=== PATIENT | male | born 1960 | race Caucasian/White ===

== ENCOUNTER 2019-06-04 05:15 | Inpatient (IN) ==
--- NOTE | 2019-05-09 10:28 | PAT Medication Instructions ---
Medication Instructions Date of Service May 09, 2019 Home Medications Medication Instructions Recorded oxycodone-acetaminophen [Percocet] 1 tab PO Q6H PRN #15 tab 02/01/19 tamsulosin 0.4 mg PO DAILY #10 cap 02/01/19 Januvia 100 mg PO QPM amlodipine 10 mg PO QAM aspirin 81 mg PO QPM doxazosin 4 mg PO QPM glimepiride 1 mg PO QAM metformin 1,000 mg PO BID olmesartan-hydrochlorothiazide 1 tab PO QAM omeprazole 20 mg PO QAM oxycodone-acetaminophen [Percocet] 1 tab PO Q6H PRN tamsulosin 0.4 mg PO DAILY ASK your prescriber and surgeon aspirin 81 mg PO QPM DO NOT take the morning of surgery glimepiride 1 mg PO QAM metformin 1,000 mg PO BID olmesartan-hydrochlorothiazide 1 tab PO QAM Take morning of surgery With a small sip of water, OTHERWISE NOTHING TO EAT OR DRINK AFTER MIDNIGHT: amlodipine 10 mg PO QAM omeprazole 20 mg PO QAM oxycodone-acetaminophen [Percocet] 1 tab PO Q6H PRN (okay to take up to 4 hours prior to surgery if needed) tamsulosin 0.4 mg PO DAILY Take evening before surgery Januvia 100 mg PO QPM doxazosin 4 mg PO QPM metformin 1,000 mg PO BID oxycodone-acetaminophen [Percocet] 1 tab PO Q6H PRN (if needed) Other Notes If you have any questions please call us at [phone] or [phone] or [phone] or [phone]
--- NOTE | 2019-05-09 14:12 | Anesthesiology Consultation ---
Date of Service May 09, 2019 Assessment & Plan (1) Encounter for pre-operative examination: CHECK BSG AM DOS Lithotripsy 02/01/19 = LMA # 5, atraumatic, smooth IV induction. Chart Review Chart Review: Acceptable Risk for Surgery and Patient seen in Pre Admission Testing Teaching & Discussion Instructed NPO after midnight before surgery, except medications with 15 cc of water. Medication instructions provided according to the PAT guidelines. History Surgery Operation Date: 06/04/19 07:30 Proposed Procedures p Right Robotic Laparoscopic Assisted Partial Nephrectomy - Amari Huston MD Height/Weight Height: 5 ft 10 in Weight: 139.9 kg Allergies Allergy/AdvReac Type Severity Reaction Status Date / Time No Known Allergies Allergy Verified 05/02/19 15:11 Medications Home Medications Medication Instructions Recorded Confirmed Last Taken Januvia 100 mg PO QPM 01/17/19 05/02/19 01/31/19 19:00 amlodipine 10 mg PO QAM 01/17/19 05/02/19 02/01/19 04:30 aspirin 81 mg PO QPM 01/17/19 05/02/19 01/24/19 18:00 doxazosin 4 mg PO QPM 01/17/19 05/02/19 01/31/19 19:00 glimepiride 1 mg PO QAM 01/17/19 05/02/19 01/31/19 08:00 metformin 1,000 mg PO BID 01/17/19 05/02/19 01/31/19 19:00 olmesartan-hydrochlorothiazide 1 tab PO QAM 01/17/19 05/02/19 01/31/19 08:00 omeprazole 20 mg PO QAM 01/17/19 05/02/19 02/01/19 04:30 oxycodone-acetaminophen [Percocet] 1 tab PO Q6H PRN #15 tab 02/01/19 05/02/19 Unknown tamsulosin 0.4 mg PO DAILY #10 cap 02/01/19 05/02/19 Unknown Past Medical History Medical History Abnormal EKG 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 Cardio workup showed benign echo. Diabetes mellitus, type 2 NIDDM GERD (gastroesophageal reflux disease) History of kidney stones Hypertension Renal mass Sleep apnea CPAP Exercise / Class Metabolic Activity II 4-5 Yardwork/Stairs/Walk up hill (Denies CP or SOB with 1 FOS, hung true lights this AM, up and down ladder without issue) Past Family History Family History Father Family history of diabetes mellitus Grandmother (Maternal) Family hx of colon cancer Past Surgical History Surgical History History of colonoscopy History of lithotripsy [place] [facility] [place] [facility] [place] of tonsillectomy History of wisdom tooth extraction Past Anesthesia History No Hx of Anesthesia Complications and No Family Hx of Anesthesia Complications History of PONV No Hx of PONV and Hx of Motion Sickness Social History Smoking Status: Never smoker Do You Dip or Chew Tobacco: No Hx Alcohol Use: Yes alcohol intake frequency: holidays/special occasions only Hx Substance Use: No substance use type: does not use Review of Systems Pt denies any recent chest pain, shortness of breath, palpitations, cough, fever or URI. Physical Exam Vital Signs BP: 133/81 P: 82bpm SPO2: 95% RA T: 98.1 F R: 18 Constitutional + morbidly obese ENMT Mouth: + dental restorations (one crown upper L, several broken teeth bonded); no chipped teeth and no loose teeth Thyromental Distance: > or= 3.5 Finger Breadths (3.5) Mallampati Class: III Neck + short neck, + thick neck and + facial hair (trimmed goatee); neck extension not limited Respiratory normal respiratory effort Auscultation: lungs clear to auscultation bilaterally Cardiovascular Rate/Rhythm: regular rate and regular rhythm Heart Sounds: no murmur Vessels: no carotid bruit Extremities: no edema Testing Laboratory Results 05/09/19 14:22 05/09/19 14:22 Hemoglobin A1c 6.9 % (4.5-5.6) H 05/09/19 14:22 Urine Color Yellow 05/09/19 14:22 Urine Appearance Clear (Clear) 05/09/19 14:22 Urine pH 5.0 (4.5-7.5) 05/09/19 14:22 Ur Specific [place] 1.024 (1.000-1.030) 05/09/19 14:22 Urine Protein Negative (Negative) 05/09/19 14:22 Urine Glucose (UA) Negative (Negative) 05/09/19 14:22 Urine Ketones Negative (Negative) 05/09/19 14:22 Urine Nitrite Negative (Negative) 05/09/19 14:22 Ur Leukocyte Esterase Negative (Negative) 05/09/19 14:22 Blood Type O Positive 05/09/19 14:22 Antibody Screen NEGATIVE 05/09/19 14:22 Electrocardiogram Date: 01/19/19 Sinus rhythm at 80 bpm with occasional premature ventricular complexes. Inferior infarct, age undetermined. Chest X-Ray Date: 05/09/19 Findings: + NAD Echocardiogram Date: 01/30/19 EF: 60-65% Left ventricular size wall motion and systolic function are normal. There is mild concentric LVH. No significant valvular pathology.
--- NOTE | 2019-05-09 14:37 | XRay Report ---
TWO VIEW CHEST CLINICAL HISTORY: Preoperative examination. FINDINGS: PA and lateral chest radiographs are obtained. No prior studies are available for compariso n at the time of dictation. The heart is top normal for projection noting atherosclerotic calcifica tion of the thoracic aorta. There is mild elevation of the right hemidiaphragm and bibasilar atelecta sis. The lungs and pleural spaces are otherwise clear. There is no pneumothorax. The bony thorax appe ars intact. IMPRESSION: No active disease in the chest. Electronically signed by: Tim Minor M.D. 05/09/2019 2:35 PM
[2019-05-09 16:18] LABS: Basophils # (auto) 0.05 K/uL (0-0.2); Basophils % (auto) 0.7 %; Eosinophils # (auto) 0.12 K/uL (0-0.5); Eosinophils % (auto) 1.7 %; Hematocrit (blood only) 39.2 % (42-52); Hemoglobin 13.5 g/dL (14.0-18.0); Immature Granulocytes # (auto) 0.02 K/uL (0.00-0.02); Immature Granulocytes % (auto) 0.3 %; Lymphocytes # (auto) 1.45 K/uL (1.2-3.4); Mean Corpuscular Hemoglobin 30.5 pg (25-34); Mean Corpuscular Hgb Conc 34.4 g/dL (32-36); Mean Corpuscular Volume 88.7 fL (80-100); Mean Platelet Volume 9.7 fL (7.4-10.4); Monocytes # (auto) 0.64 K/uL (0.11-0.59); Monocytes % (auto) 8.8 %; Neutrophils # (auto) 4.97 K/uL (1.4-6.5); Neutrophils % (auto) 68.5 %; Platelet Count 279 K/uL (130-400); Red Blood Count 4.42 M/uL (4.7-6.1); White Blood Count 7.25 K/uL (4.8-10.8)
[2019-05-09 16:24] LABS: Est GFR (African American) 104.4; Potassium 3.8 mmol/L (3.5-5.1)
[2019-05-09 16:25] LABS: BUN Creatinine Ratio 25.8 (10-20); Calcium 9.8 mg/dl (8.5-10.1); Creatinine Clr Calc Pharmacy 120.5 ml/min; Est GFR (Non-African American) 90.1
[2019-05-09 16:31] LABS: Appearance Urine Clear (Clear); Bilirubin Urine Negative (Negative); Blood Urine Negative (Negative); Color Urine Yellow; Glucose Urine UA Negative (Negative); Ketones Urine Negative (Negative); Leukocyte Esterase Urine Negative (Negative); Nitrite Urine Negative (Negative); Protein Urine Negative (Negative); Specific Gravity Urine 1.024 (1.000-1.030); Urobilinogen Urine Negative (Negative)
[2019-05-10 06:09] LABS: Estimated Average Glucose 151 mg/dl; Hemoglobin A1C 6.9 % (4.5-5.6)
[2019-06-04] MEDS ORDERED: CEFAZOLIN 3000MG 65 ML IV SCH (06:00)
[2019-06-04] MEDS ORDERED: ACETAMINOPHEN 1,000 MG/100 ML VIAL IV SCH (06:00)
[2019-06-04] MEDS ORDERED: LR 15ML/HR IV SCH (06:00)
[2019-06-04] MEDS ORDERED: GELATIN SPONGE SZ 100 ONE (07:02)
[2019-06-04] MEDS ORDERED: MANNITOL 25% 12.5 GM/50 ML VIAL IV ONE (07:02)
[2019-06-04] MEDS ORDERED: BUPIVACAINE 0.5 % 5 MG/1 ML MPF 30ML VIAL ONE (07:02)
[2019-06-04] MEDS ORDERED: fentaNYL citrate 100 MCG/2 ML VIAL ONE ×3 (07:03→10:46)
[2019-06-04] MEDS ORDERED: MIDAZOLAM HCL 1 MG/ML 2ML VIAL ONE (07:03)
--- NOTE | 2019-06-04 07:04 | History & Physical Bridge Note ---
Date of Service June 04, 2019 History & Physical Bridge Note I have examined the patient, reviewed the History & Physical and in the interval since the performance of the History & Physical I have noted the following changes of clinical significance: no changes noted
[2019-06-04] MEDS ORDERED: ePHEDrine sulfate 50 MG/ML AMP IV PRN (07:18)
[2019-06-04] MEDS ORDERED: HYDROmorphone INJ 2 MG/ML SYR/VIAL IV PRN (07:18)
[2019-06-04] MEDS ORDERED: ATROPINE SULFATE 0.1 MG/ML 10ML SYR IV PRN (07:18)
[2019-06-04] MEDS ORDERED: fentaNYL citrate 100 MCG/2 ML VIAL IV PRN (07:18)
[2019-06-04] MEDS ORDERED: HYDROmorphone INJ 2 MG/ML SYR/VIAL ONE (08:28)
[2019-06-04] MEDS ORDERED: DEXAMETHASONE SOD INJ 4 MG/ML VIAL ONE (08:33)
[2019-06-04] MEDS ORDERED: PROPOFOL IV EMULSION 10 MG/ML 20 ML VIAL IV ONE (08:33)
[2019-06-04] MEDS ORDERED: NEOSTIGMINE METHYLSULFATE 5 MG/5 ML SYR ONE (08:33)
[2019-06-04] MEDS ORDERED: GLYCOPYRROLATE 0.2 MG/ML VIAL ONE (08:33)
[2019-06-04] MEDS ORDERED: PHENYLEPHRINE 100MCG/ML 5ML SYR ONE (08:33)
[2019-06-04] MEDS ORDERED: LIDOCAINE HCL 2% 2 ML VIAL/AMP(20MG/ML) INFIL ONE (08:33)
[2019-06-04] MEDS ORDERED: ONDANSETRON INJ 2 MG/ML 2 ML VIAL ONE ×2 (08:33→12:55)
[2019-06-04] MEDS ORDERED: ePHEDrine sulfate 50 MG/ML SYR ONE (08:33)
[2019-06-04] MEDS ORDERED: ROCURONIUM BROMIDE 10 MG/ML 5 ML VIAL ONE ×3 (08:33→11:11)
[2019-06-04] MEDS ORDERED: LARYING-O-JET KIT (LTA) ONE (08:33)
[2019-06-04] MEDS ORDERED: FLOSEAL HEMOSTATIC MATRIX 10ML TOP ONE (09:34)
[2019-06-04] MEDS ORDERED: TISSEEL FIBRIN SEALANT 10ML TOP ONE (09:34)
[2019-06-04] MEDS ORDERED: BACITRACIN INJ 50,000 UNIT VIAL ONE (10:42)
--- NOTE | 2019-06-04 12:40 | Operative Report ---
PG Post Operative Report Pre & Post Diagnosis Operation Date: 06/04/19 07:30 Pre-Op Diagnosis: Right Renal Mass Post-Op Diagnosis: Right Renal Mass I identified the patient and participated in the time-out.: Yes Procedure Operation Date: 06/04/19 07:30 Actual Procedures p Right Robotic Laparoscopic Assisted Partial Nephrectomy(Right) - Amari Huston MD Surgeon Amari Huston MD Transitional Care Liaison KESHA Saucedo, KESHA De Paz Estimated Blood Loss 100 Findings Consistent with Post-Op Diagnosis Specimens R Bosjasmink 3 renal cyst Description of Procedure See above I attest to the content of the Intraoperative Record and any orders documented therein. Any exceptions are noted below.
[2019-06-04] MEDS ORDERED: ONDANSETRON INJ 2 MG/ML 2 ML VIAL IV PRN ×2 (12:57→14:41)
[2019-06-04 13:05] LABS: Basophils # (auto) 0.01 K/uL (0-0.2); Basophils % (auto) 0.1 %; Eosinophils # (auto) 0.01 K/uL (0-0.5); Eosinophils % (auto) 0.1 %; Hematocrit (blood only) 39.3 % (42-52); Hemoglobin 13.1 g/dL (14.0-18.0); Immature Granulocytes # (auto) 0.03 K/uL (0.00-0.02); Immature Granulocytes % (auto) 0.3 %; Lymphocytes # (auto) 0.75 K/uL (1.2-3.4); Lymphocytes % (auto) 6.4 %; Mean Corpuscular Hemoglobin 30.3 pg (25-34); Monocytes # (auto) 0.33 K/uL (0.11-0.59); Monocytes % (auto) 2.8 %; Neutrophils # (auto) 10.55 K/uL (1.4-6.5); Neutrophils % (auto) 90.3 %; Platelet Count 250 K/uL (130-400); RDW Coefficient of Variation 12.7 % (11.5-14.5); RDW Standard Deviation 42.3 fL (36.4-46.3); Red Blood Count 4.32 M/uL (4.7-6.1); White Blood Count 11.68 K/uL (4.8-10.8)
[2019-06-04 13:08] LABS: Mean Corpuscular Hgb Conc 33.3 g/dL (32-36)
[2019-06-04 13:20] LABS: BUN Creatinine Ratio 14.4 (10-20); Calcium 8.7 mg/dl (8.5-10.1); Creatinine Clr Calc Pharmacy 84.8 ml/min; Est GFR (African American) 68.1; Est GFR (Non-African American) 58.8; Potassium 4.6 mmol/L (3.5-5.1)
[2019-06-04] MEDS ORDERED: PROMETHAZINE HCL 6.25 MG in SODIUM CHLORIDE 0.9% 50 ML IV STA (13:29)
--- NOTE | 2019-06-04 13:55 | Anesthesiology Progress Note ---
Date of Service June 04, 2019 Anesthesia Post Procedure Vital Signs Vital Signs: Temp Pulse Pulse Resp BP BP Pulse Ox 06/04/19 13:40 95 H 18 135/69 94 06/04/19 13:30 102 H 18 140/78 96 06/04/19 13:20 96 H 20 132/82 95 06/04/19 13:10 80 17 133/86 97 06/04/19 13:00 88 17 133/71 96 06/04/19 12:50 84 12 121/69 96 06/04/19 12:41 36.6 C 88 16 136/64 97 06/04/19 05:46 36.7 C 87 16 161/87 H 93 Pain Intensity Right Abdomen: Pain Intensity: 0 Transfer of Care Handoff Completed per policy Notes Mental Status: alert / awake / arousable and participated in evaluation Patient Amnestic to Procedure: Yes Nausea / Vomiting: adequately controlled Pain: adequately controlled Airway Patency, RR, SpO2: stable & adequate BP & HR: stable & adequate Hydration State: stable & adequate Anesthetic Complications: no major complications apparent and Pt Satisfied with anesthetic care
[2019-06-04] MEDS ORDERED: HYDROmorphone INJ 1 MG/ML SYRINGE IV PRN (14:41)
[2019-06-04] MEDS ORDERED: OXYCODONE HCL IR 5 MG TAB (IMMEDIATE RELEASE) PO PRN (14:41)
[2019-06-04] MEDS ORDERED: PHARMACY GLYCEMIC MGMT CONSULT PRN (15:11)
--- NOTE | 2019-06-04 15:11 | Pharmacy Report ---
Glycemic Control Consultation - Date of Service June 04, 2019 - Scope Scope: Glycemic Pharmacist consulted by Marjan Singh on 06/04 for glycemic control and to write orders per [facility] inpatient glycemic control protocol - Objective Weight: 140.354 kg Accuchecks BSG (last 24hrs): 06/04/19 06/04/19 06/04/19 05:44 12:51 12:51 Glucose 254 H POC Glucose 182 H 240 H Laboratory Data (last 24hrs): 06/04/19 12:51 Potassium 4.6 Carbon Dioxide 23 Anion Gap 9.0 Creatinine 1.31 Est Cr Clr Drug Dosing 84.8 HbA1c: Hemoglobin A1c 6.9 % (4.5-5.6) H 05/09/19 14:22 - Recent Pertinent Medications Outpatient Anti-diabetic Regimen: * glimepiride 1 mg qam, metformin 1000 mg bid, januvia 100 qpm * A1c = 6.9 % 05/09/19 Risk Factors for Insulin Resistance: * Steroids: Dxm 4 iv x 1 in OR * Recent Surgery: POD 0 * Diet: clears - Assessment & Plan Assessment & Plan: ASSESSMENT: * 58 year old male now s/p partial nephrectomy. PMHx significant for type 2 diabetes, htn, GERD, renal mass. * Postop BSGs elevated at 240 mg/dL - likely related to steroids given in OR * Pharmacy consulted for glycemic management. Patient only on oral agents at home. Will utilize basal/bolus insulin postop PLAN FOR INPATIENT GLYCEMIC CONTROL: * Pt is maintained on oral antidiabetic agents as an outpatient * Oral agents are not recommended for inpatient use d/t drug interactions, changing PO intake, and difficulty titrating for acute hyper/hypoglycemia. ADA recommends re-initiating outpatient oral agents 1-2 days prior to discharge if/when appropriate if they were held on admission. * Will hold oral agents for admission and utilize SQ basal bolus insulin regimen which is the recommended regimen for inpatient glycemic control. * Will initiate weight based insulin dosing for insulin willy patient and titrate based on BSG trends. * Basal insulin * NPH 25 units x 1 now (~0.25 units/kg adj bw) - to help cover steroids * Bolus insulin * NovoLog per scale ACHS or Q6hrs while NPO * Goal Range: Low 110 mg/dL - High 140 mg/dL * Correction Factor: 20 mg/dL/unit * Nutritional / Prandial insulin per carb ratio of 1 unit per 7 grams CHO consumed * Please note that the plan above was derived based on current level of insulin resistance and hospital stress. These recommendations are appropriate for inpatient admission only. Plan of care upon discharge will need to be reassessed to avoid potential outpatient hypo/hyperglycemia. Thank you.
[2019-06-04] MEDS ORDERED: NovoLIN-N (NPH) PER UNIT CHARGE SQ ONE (15:15)
[2019-06-04] MEDS ORDERED: GLUCOSE 10 TABS/TUBE PO PRN (15:15)
[2019-06-04] MEDS ORDERED: GLUCAGON FOR INJ 1 MG VIAL IM PRN (15:15)
[2019-06-04] MEDS ORDERED: GLUCOSE 40% GEL 15 GM TUBE PO PRN (15:15)
[2019-06-04] MEDS ORDERED: CARBOHYDRATES FOR HYPOGLYCEMIA PO PRN (15:15)
[2019-06-04] MEDS ORDERED: DEXTROSE 50% 50 ML SYRINGE IV PRN (15:15)
[2019-06-04] MEDS: LACTATED RINGER'S 1,000 ML IV SCH ×2 (15:39→22:44)
[2019-06-04] MEDS: ACETAMINOPHEN 1,000 MG/100 ML VIAL IV SCH ×2 (15:49→22:44)
[2019-06-04] MEDS: PANTOprazole 40 MG TAB PO SCH (16:05)
[2019-06-04] MEDS: CEFAZOLIN 2000MG 2,000 MG/15 ML SYR IV SCH (16:37)
[2019-06-04] MEDS: OXYCODONE HCL IR 5 MG TAB (IMMEDIATE RELEASE) PO PRN (17:38)
[2019-06-04] MEDS: INSULIN ASPART 100 UNITS/ML 3 ML PEN SC SCH ×2 (18:07→21:20)
[2019-06-04] MEDS ORDERED: METOCLOPRAMIDE HCL INJ 5 MG/ML 2 ML VIAL IV PRN (18:25)
[2019-06-04] MEDS: HYDROmorphone INJ 1 MG/ML SYRINGE IV PRN (19:46)
[2019-06-04] MEDS: DOXAZosin MESYLATE 4 MG TAB PO SCH (21:19)
[2019-06-05] MEDS: OXYCODONE HCL IR 5 MG TAB (IMMEDIATE RELEASE) PO PRN ×5 (00:08→22:25)
[2019-06-05] MEDS: CEFAZOLIN 2000MG 2,000 MG/15 ML SYR IV SCH (00:09)
[2019-06-05] MEDS: INSULIN ASPART 100 UNITS/ML 3 ML PEN SC SCH ×6 (00:13→21:10)
[2019-06-05] MEDS: LACTATED RINGER'S 1,000 ML IV SCH ×3 (06:34→22:25)
[2019-06-05] MEDS: ACETAMINOPHEN 1,000 MG/100 ML VIAL IV SCH (06:34)
[2019-06-05 07:47] LABS: Basophils # (auto) 0.01 K/uL (0-0.2); Basophils % (auto) 0.1 %; Eosinophils # (auto) 0.01 K/uL (0-0.5); Eosinophils % (auto) 0.1 %; Hematocrit (blood only) 36.4 % (42-52); Hemoglobin 12.1 g/dL (14.0-18.0); Immature Granulocytes # (auto) 0.02 K/uL (0.00-0.02); Immature Granulocytes % (auto) 0.2 %; Lymphocytes # (auto) 0.91 K/uL (1.2-3.4); Lymphocytes % (auto) 10.2 %; Mean Corpuscular Hemoglobin 29.7 pg (25-34); Mean Corpuscular Hgb Conc 33.2 g/dL (32-36); Mean Corpuscular Volume 89.2 fL (80-100); Mean Platelet Volume 9.4 fL (7.4-10.4); Monocytes # (auto) 0.89 K/uL (0.11-0.59); Neutrophils % (auto) 79.4 %; Platelet Count 217 K/uL (130-400); RDW Coefficient of Variation 13.1 % (11.5-14.5); RDW Standard Deviation 42.8 fL (36.4-46.3); Red Blood Count 4.08 M/uL (4.7-6.1); White Blood Count 8.94 K/uL (4.8-10.8)
--- NOTE | 2019-06-05 07:53 | Urology Progress Note ---
Date of Service June 05, 2019 Assessment & Plan (1) Right renal mass: A/P 58 yo male POD#1 s/p R robotic partial nephrectomy for Bosniak 3 renal cyst. Appropriate postop course so far. Will keep IVF for now seen emesis last night. Trial of full liquids this AM, consider advancing diet this PM if tolerating. Seen pain med requirement I anticipate DC home tomorrow. TOV today, ambulate in halls. Importance of activity reviewed. Monitor ROME OP after removal of williamson, acceptable for now. Subjective 58 yo male POD#1 s/p R robotic partial nephrectomy. OVN noted to have nausea and emesis, improved, now with appetite. Ambulatory in hallways, reports parenteral pain meds needed for pain control. Intraop findings reviewed, labs noted - minimal bump in Cr, otherwise stable. No other c/o. Review of Systems Constitutional: no fever and no chills Eyes: no diplopia Ear, Nose, Mouth, Throat: no ear trauma Respiratory: no hemoptysis Cardiovascular: no chest pain Gastrointestinal: + abdominal pain (appropriate postop), + nausea and + vomiting (improved) Musculoskeletal: + back pain Integumentary: no acne and no boil Neurologic: no paralysis Psychiatric: no hopelessness Endocrine: + fatigue Allergy / Immunological: no tongue swelling Physical Exam Constitutional: + morbidly obese; no acute distress Eyes: eyes not dysmorphic ENMT: Ears: no external ear abnormality Neck: trachea midline; no anterior neck swelling Respiratory: no respiratory distress and does not use accessory muscles Cardiovascular: Vessels: radial pulses present Gastrointestinal (Abdomen): Inspection/Auscultation: abdomen not distended Percussion/Palpation: abdomen soft; abdomen nontender inc c/d/i Musculoskeletal: Head/Neck/Chest: normocephalic and neck supple Skin: normal turgor Neurologic: awake; not obtunded Psychiatric: Orientation: oriented x 3 Lymphatic: no lymphadenopathy Results & Data Vital Signs (Past 12 Hours) Vital Signs Temp Pulse Resp BP Pulse Ox 06/05/19 04:27 37.1 C 85 16 127/70 90 06/04/19 23:29 37.0 C 84 16 121/72 90 06/04/19 21:17 83 124/72 Laboratory Results Laboratory Results - last 48 hr 06/04/19 06/04/19 06/04/19 05:44 12:51 12:51 WBC 11.68 H RBC 4.32 L Hgb 13.1 L Hct 39.3 L MCV 91.0 MCH 30.3 MCHC 33.3 RDW Std Deviation 42.3 RDW Coeff of Sheron 12.7 Plt Count 250 MPV 9.0 Immature Gran % (Auto) 0.3 Neut % (Auto) 90.3 Lymph % (Auto) 6.4 [place] % (Auto) 2.8 Eos % (Auto) 0.1 Baso % (Auto) 0.1 Immature Gran # (Auto) 0.03 H Neut # (Auto) 10.55 H Lymph # (Auto) 0.75 L [place] # (Auto) 0.33 Eos # (Auto) 0.01 Baso # (Auto) 0.01 Sodium 135 L Potassium 4.6 Chloride 103 Carbon Dioxide 23 Anion Gap 9.0 BUN 19 H Creatinine 1.31 Est Cr Clr Drug Dosing 84.8 Est GFR ( Amer) 68.1 Est GFR (Non-Af Amer) 58.8 BUN/Creatinine Ratio 14.4 Glucose 254 H POC Glucose 182 H Calcium 8.7 06/04/19 06/04/19 06/04/19 12:51 15:43 17:12 WBC RBC Hgb Hct MCV MCH MCHC RDW Std Deviation RDW Coeff of Sheron Plt Count MPV Immature Gran % (Auto) Neut % (Auto) Lymph % (Auto) [place] % (Auto) Eos % (Auto) Baso % (Auto) Immature Gran # (Auto) Neut # (Auto) Lymph # (Auto) [place] # (Auto) Eos # (Auto) Baso # (Auto) Sodium Potassium Chloride Carbon Dioxide Anion Gap BUN Creatinine Est Cr Clr Drug Dosing Est GFR ( Amer) Est GFR (Non-Af Amer) BUN/Creatinine Ratio Glucose POC Glucose 240 H 260 H 225 H Calcium 06/04/19 06/05/19 06/05/19 20:40 00:04 04:16 WBC RBC Hgb Hct MCV MCH MCHC RDW Std Deviation RDW Coeff of Sheron Plt Count MPV Immature Gran % (Auto) Neut % (Auto) Lymph % (Auto) [place] % (Auto) Eos % (Auto) Baso % (Auto) Immature Gran # (Auto) Neut # (Auto) Lymph # (Auto) [place] # (Auto) Eos # (Auto) Baso # (Auto) Sodium Potassium Chloride Carbon Dioxide Anion Gap BUN Creatinine Est Cr Clr Drug Dosing Est GFR ( Amer) Est GFR (Non-Af Amer) BUN/Creatinine Ratio Glucose POC Glucose 201 H 139 H 124 H Calcium 06/05/19 07:03 WBC 8.94 RBC 4.08 L Hgb 12.1 L Hct 36.4 L MCV 89.2 MCH 29.7 MCHC 33.2 RDW Std Deviation 42.8 RDW Coeff of Sheron 13.1 Plt Count 217 MPV 9.4 Immature Gran % (Auto) 0.2 Neut % (Auto) 79.4 Lymph % (Auto) 10.2 [place] % (Auto) 10.0 Eos % (Auto) 0.1 Baso % (Auto) 0.1 Immature Gran # (Auto) 0.02 Neut # (Auto) 7.10 H Lymph # (Auto) 0.91 L [place] # (Auto) 0.89 H Eos # (Auto) 0.01 Baso # (Auto) 0.01 Sodium Potassium Chloride Carbon Dioxide Anion Gap BUN Creatinine Est Cr Clr Drug Dosing Est GFR ( Amer) Est GFR (Non-Af Amer) BUN/Creatinine Ratio Glucose POC Glucose Calcium PG Care Time/CCT Total # of Minutes Spent Total Time Spent with Patient: Total time spent is greater than 50% in coordination of care (as documented) at patient's floor/unit and/or counseling patient:
[2019-06-05 08:20] LABS: BUN Creatinine Ratio 14.8 (10-20); Calcium 8.4 mg/dl (8.5-10.1); Creatinine Clr Calc Pharmacy 118.1 ml/min; Est GFR (African American) 101.7; Est GFR (Non-African American) 87.8; Potassium 3.5 mmol/L (3.5-5.1)
[2019-06-05] MEDS ORDERED: NovoLIN-N (NPH) PER UNIT CHARGE SQ STA (08:54)
[2019-06-05] MEDS: OLMESARTAN MEDOXOMIL 40 MG TAB PO SCH (08:57)
[2019-06-05] MEDS: hydroCHLOROthiazide 25 MG TAB PO SCH (08:57)
[2019-06-05] MEDS: HEPARIN SOD 5,000 UNIT/0.5 ML VIAL SQ SCH ×2 (08:57→21:11)
[2019-06-05] MEDS: AMLODIPINE BESYLATE 5 MG TAB PO SCH (08:57)
[2019-06-05] MEDS: PANTOprazole 40 MG TAB PO SCH (08:57)
[2019-06-05] MEDS: HYDROmorphone INJ 1 MG/ML SYRINGE IV PRN (09:20)
--- NOTE | 2019-06-05 13:15 | Pharmacy Report ---
Pharmacy Glycemic Short Note 2 - Date of Service June 05, 2019 - Glycemic Short BSG Results (Last 24 hours): 06/04/19 06/04/19 06/04/19 12:51 15:43 17:12 Glucose 254 H POC Glucose 260 H 225 H 06/04/19 06/05/19 06/05/19 20:40 00:04 04:16 Glucose POC Glucose 201 H 139 H 124 H 06/05/19 06/05/19 07:03 08:34 Glucose 142 H POC Glucose 136 H ASSESSMENT: * BSGs have been reasonable today. I provided NPH 17u X1 this AM due to him receiving IV DXM perioperatively yesterday. Hyperglycemic effects are likely to dissipate by this evening. He is ordered a full liquid diet. Minimal other RF to confer insulin resistance at this time. PLAN FOR INPATIENT GLYCEMIC CONTROL: * Hold outpatient oral diabetes medications * Basal insulin * NPH as above * Bolus insulin * NovoLog per scale ACHS or Q6hrs while NPO * Goal Range: Low 110 mg/dL - High 140 mg/dL * Correction Factor: 20 mg/dL/unit * Nutritional / Prandial insulin per carb ratio of 1 unit per 6 grams CHO consumed
[2019-06-05] MEDS ORDERED: ACETAMINOPHEN 500 MG TAB PO PRN (17:58)
[2019-06-05] MEDS: DOXAZosin MESYLATE 4 MG TAB PO SCH (21:11)
[2019-06-06] MEDS: LACTATED RINGER'S 1,000 ML IV SCH (06:26)
[2019-06-06 07:00] LABS: Basophils # (auto) 0.02 K/uL (0-0.2); Basophils % (auto) 0.3 %; Eosinophils # (auto) 0.08 K/uL (0-0.5); Hematocrit (blood only) 35.7 % (42-52); Hemoglobin 11.8 g/dL (14.0-18.0); Immature Granulocytes # (auto) 0.02 K/uL (0.00-0.02); Immature Granulocytes % (auto) 0.3 %; Lymphocytes # (auto) 1.09 K/uL (1.2-3.4); Lymphocytes % (auto) 14.1 %; Mean Corpuscular Hemoglobin 29.8 pg (25-34); Mean Corpuscular Hgb Conc 33.1 g/dL (32-36); Mean Corpuscular Volume 90.2 fL (80-100); Mean Platelet Volume 9.2 fL (7.4-10.4); Monocytes # (auto) 0.83 K/uL (0.11-0.59); Monocytes % (auto) 10.7 %; Neutrophils % (auto) 73.6 %; Platelet Count 203 K/uL (130-400); RDW Coefficient of Variation 13.1 % (11.5-14.5); RDW Standard Deviation 43.2 fL (36.4-46.3); Red Blood Count 3.96 M/uL (4.7-6.1); White Blood Count 7.74 K/uL (4.8-10.8)
[2019-06-06 07:32] LABS: BUN Creatinine Ratio 12.9 (10-20); Calcium 8.5 mg/dl (8.5-10.1); Creatinine Clr Calc Pharmacy 114.5 ml/min; Est GFR (African American) 97.9; Est GFR (Non-African American) 84.5; Potassium 3.4 mmol/L (3.5-5.1)
[2019-06-06] MEDS: OXYCODONE HCL IR 5 MG TAB (IMMEDIATE RELEASE) PO PRN ×2 (07:40→12:34)
[2019-06-06] MEDS: hydroCHLOROthiazide 25 MG TAB PO SCH (07:41)
[2019-06-06] MEDS: OLMESARTAN MEDOXOMIL 40 MG TAB PO SCH (07:41)
[2019-06-06] MEDS: AMLODIPINE BESYLATE 5 MG TAB PO SCH (07:41)
[2019-06-06] MEDS: PANTOprazole 40 MG TAB PO SCH (07:41)
[2019-06-06] MEDS: HEPARIN SOD 5,000 UNIT/0.5 ML VIAL SQ SCH (08:42)
[2019-06-06] MEDS: INSULIN ASPART 100 UNITS/ML 3 ML PEN SC SCH ×2 (08:42→12:38)
[2019-06-06] MEDS ORDERED: NovoLIN-N (NPH) PER UNIT CHARGE SQ SCH (09:00)
[2019-06-06] MEDS ORDERED: METFORMIN HCL 500 MG TAB PO SCH (09:00)
--- NOTE | 2019-06-06 10:32 | Pharmacy Report ---
Pharmacy Glycemic Short Note 2 - Date of Service June 06, 2019 - Glycemic Short BSG Results (Last 24 hours): 06/05/19 06/05/19 06/05/19 12:24 17:19 20:39 Glucose POC Glucose 176 H 151 H 169 H 06/06/19 06/06/19 06:21 08:20 Glucose 160 H POC Glucose 162 H ASSESSMENT: * Patient received total 52 units of insulin yesterday of which 17 units were basal NPH and the rest bolus Novolog. * Fasting BSG only slightly above goal. Post prandial BSGs yesterday were also slightly above goal. * Spoke to nurse this AM. Patient has been tolerating a full liquid diet without nausea/vomiting. He would like to advance to regular diet per nurse. Also plan for discharge today. * Dosed NPH this AM at 10 units x1 which is based on weight and stress factor of 1. Resumed home dose of Metformin this AM as well. * Novolog carb ratio was removed starting at lunch since Metformin should be working by then. This is only pertinent if patient is still here at lunch time. PLAN FOR INPATIENT GLYCEMIC CONTROL: * Metformin 1000 mg PO BID with breakfast today. * Basal insulin * NPH as above * Bolus insulin: removed Carb Ratio * NovoLog per scale ACHS or Q6hrs while NPO * Goal Range: Low 110 mg/dL - High 140 mg/dL * Correction Factor: 20 mg/dL/unit * Nutritional / Prandial insulin per carb ratio of 1 unit per __ grams CHO consumed Discharge Recommendations: * HbA1c = 6.9% on 05/09/19. * Recommend resuming home anti-diabetic meds: Glimepiride, Metformin and Januvia upon discharge provided patient is not reporting hypoglycemia.
--- NOTE | 2019-06-06 13:19 | Urology Progress Note ---
Date of Service June 06, 2019 Assessment & Plan (1) Right renal mass: A/P 58 yo male POD#2 s/p R robotic partial nephrectomy for Bosniak 3 renal cyst. Pt feeling well, ready for discharge. Post op course reviewed. ROME discontinued. All questions answered, post op appointments arranged. . Subjective 58 yo male POD#2 s/p R robotic partial nephrectomy. nausea improved since yesterday, no further vomiting. ambulating in halls Voiding adequate amounts spontaneosly pain presently controlled Review of Systems Review of Systems: All systems reviewed & are unremarkable except as noted in HPI & below Physical Exam Physical Exam: A&Ox3 resp rate regular abd obese, nontender incisions c/d/i ROME site with scant drainage Results & Data Vital Signs (Past 12 Hours) Vital Signs Temp Pulse Resp BP Pulse Ox 06/06/19 07:40 36.6 C 96 H 22 148/74 H 91 Laboratory Results Laboratory Results - last 48 hr 06/04/19 06/04/19 06/04/19 12:51 15:43 17:12 WBC RBC Hgb Hct MCV MCH MCHC RDW Std Deviation RDW Coeff of Sheron Plt Count MPV Immature Gran % (Auto) Neut % (Auto) Lymph % (Auto) [place] % (Auto) Eos % (Auto) Baso % (Auto) Immature Gran # (Auto) Neut # (Auto) Lymph # (Auto) [place] # (Auto) Eos # (Auto) Baso # (Auto) Sodium 135 L Potassium 4.6 Chloride 103 Carbon Dioxide 23 Anion Gap 9.0 BUN 19 H Creatinine 1.31 Est Cr Clr Drug Dosing 84.8 Est GFR ( Amer) 68.1 Est GFR (Non-Af Amer) 58.8 BUN/Creatinine Ratio 14.4 Glucose 254 H POC Glucose 260 H 225 H Calcium 8.7 06/04/19 06/05/19 06/05/19 20:40 00:04 04:16 WBC RBC Hgb Hct MCV MCH MCHC RDW Std Deviation RDW Coeff of Sheron Plt Count MPV Immature Gran % (Auto) Neut % (Auto) Lymph % (Auto) [place] % (Auto) Eos % (Auto) Baso % (Auto) Immature Gran # (Auto) Neut # (Auto) Lymph # (Auto) [place] # (Auto) Eos # (Auto) Baso # (Auto) Sodium Potassium Chloride Carbon Dioxide Anion Gap BUN Creatinine Est Cr Clr Drug Dosing Est GFR ( Amer) Est GFR (Non-Af Amer) BUN/Creatinine Ratio Glucose POC Glucose 201 H 139 H 124 H Calcium 06/05/19 06/05/19 06/05/19 07:03 07:03 08:34 WBC 8.94 RBC 4.08 L Hgb 12.1 L Hct 36.4 L MCV 89.2 MCH 29.7 MCHC 33.2 RDW Std Deviation 42.8 RDW Coeff of Sheron 13.1 Plt Count 217 MPV 9.4 Immature Gran % (Auto) 0.2 Neut % (Auto) 79.4 Lymph % (Auto) 10.2 [place] % (Auto) 10.0 Eos % (Auto) 0.1 Baso % (Auto) 0.1 Immature Gran # (Auto) 0.02 Neut # (Auto) 7.10 H Lymph # (Auto) 0.91 L [place] # (Auto) 0.89 H Eos # (Auto) 0.01 Baso # (Auto) 0.01 Sodium 139 Potassium 3.5 D Chloride 105 Carbon Dioxide 27 Anion Gap 6.0 BUN 14 Creatinine 0.94 D Est Cr Clr Drug Dosing 118.1 Est GFR ( Amer) 101.7 Est GFR (Non-Af Amer) 87.8 BUN/Creatinine Ratio 14.8 Glucose 142 H POC Glucose 136 H Calcium 8.4 L 06/05/19 06/05/19 06/05/19 12:24 17:19 20:39 WBC RBC Hgb Hct MCV MCH MCHC RDW Std Deviation RDW Coeff of Sheron Plt Count MPV Immature Gran % (Auto) Neut % (Auto) Lymph % (Auto) [place] % (Auto) Eos % (Auto) Baso % (Auto) Immature Gran # (Auto) Neut # (Auto) Lymph # (Auto) [place] # (Auto) Eos # (Auto) Baso # (Auto) Sodium Potassium Chloride Carbon Dioxide Anion Gap BUN Creatinine Est Cr Clr Drug Dosing Est GFR ( Amer) Est GFR (Non-Af Amer) BUN/Creatinine Ratio Glucose POC Glucose 176 H 151 H 169 H Calcium 06/06/19 06/06/19 06/06/19 06:21 06:21 08:20 WBC 7.74 RBC 3.96 L Hgb 11.8 L Hct 35.7 L MCV 90.2 MCH 29.8 MCHC 33.1 RDW Std Deviation 43.2 RDW Coeff of Sheron 13.1 Plt Count 203 MPV 9.2 Immature Gran % (Auto) 0.3 Neut % (Auto) 73.6 Lymph % (Auto) 14.1 [place] % (Auto) 10.7 Eos % (Auto) 1.0 Baso % (Auto) 0.3 Immature Gran # (Auto) 0.02 Neut # (Auto) 5.70 Lymph # (Auto) 1.09 L [place] # (Auto) 0.83 H Eos # (Auto) 0.08 Baso # (Auto) 0.02 Sodium 136 Potassium 3.4 L Chloride 103 Carbon Dioxide 28 Anion Gap 5.0 BUN 13 Creatinine 0.97 Est Cr Clr Drug Dosing 114.5 Est GFR ( Amer) 97.9 Est GFR (Non-Af Amer) 84.5 BUN/Creatinine Ratio 12.9 Glucose 160 H POC Glucose 162 H Calcium 8.5 06/06/19 12:18 WBC RBC Hgb Hct MCV MCH MCHC RDW Std Deviation RDW Coeff of Sheron Plt Count MPV Immature Gran % (Auto) Neut % (Auto) Lymph % (Auto) [place] % (Auto) Eos % (Auto) Baso % (Auto) Immature Gran # (Auto) Neut # (Auto) Lymph # (Auto) [place] # (Auto) Eos # (Auto) Baso # (Auto) Sodium Potassium Chloride Carbon Dioxide Anion Gap BUN Creatinine Est Cr Clr Drug Dosing Est GFR ( Amer) Est GFR (Non-Af Amer) BUN/Creatinine Ratio Glucose POC Glucose 137 H Calcium PG Care Time/CCT Total # of Minutes Spent Total Time Spent with Patient: Total time spent is greater than 50% in coordination of care (as documented) at patient's floor/unit and/or counseling patient:
--- NOTE | 2019-06-06 19:31 | Operative Report ---
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 PROCEDURE: Right-sided robot-assisted laparoscopic partial nephrectomy. SURGEON: Amari Huston MD. ASSISTANTS: Justen Ahmadi MD; KESHA Nolan; and KESHA Balderas. The assistants were present throughout the case for retraction, suction, needle and instrument passage, exposure of tissues, manipulation of intraoperative ultrasound, retraction and patient positioning as well as general patient safety. ANESTHESIA: General anesthesia with endotracheal intubation plus local at port sites. ESTIMATED BLOOD LOSS: 100 mL. INTRAVENOUS FLUIDS: 2400 mL of crystalloid. DRAINS LEFT IN PLACE: Include a Ahn catheter to gravity drainage and a #10 ROME drain on the right hand side. SPECIMENS SENT TO PATHOLOGY: Right Bosniak III renal cyst with overlying fat. COMPLICATIONS: None. FINDINGS: Cyst dissected free and removed without puncture, excellent hemostasis and closure of renal defect. 17 minutes of warm ischemia time intraoperatively. BRIEF HISTORY: Mr. Lee is a 58-year-old obese male with an incidentally found renal mass noted at the time of presentation of stone disease. This was earlier in the summer of 2018. The patient's right renal lesion was evaluated and felt to represent a Bosniak III renal cyst. Seeing its features and the patient's age, surgical extirpation was planned. This was delayed up until present per patient's logistical preference. He has been rendered stone free on his left hand side with shockwave lithotripsy to avoid future issues with this after management of his renal mass. Please see H and P for further details. Intravenous Ancef 3 grams were provided for antibiotic coverage and SCDs were used for DVT prophylaxis. Intravenous Tylenol was provided preoperatively for additional analgesia. DESCRIPTION OF PROCEDURE: The patient was properly identified and brought into the operative suite after identification of appropriate consent in the chart. General anesthesia with endotracheal intubation was initiated and the patient was prepped and draped in standard fashion for this procedure. car shifter-out procedure was followed. The patient was placed in a gentle right flank up position with his arm in an arm board and all pressure points were carefully padded. Care was taken to ensure usual and stress-free position. Table was flexed. A 12 mm incision was made to allow for access to the abdomen under direct visualization using a 0 degree laparoscope and a 12 mm port with a visual obturator. The abdomen was entered without event and insufflated to 15 mmHg. Normal intraabdominal anatomy was appreciated. All port sites were anesthetized with local prior to incision. Two 8 mm robotic ports were placed as well as two 12 mm physiotherapist's assistant ports. The patient was noted to have a redundant liver covering the plane of dissection and therefore, a 5 mm port was placed to allow for the placement of the liver retractor on the contralateral side at the level of the xiphoid. After this was complete, the robot was brought in and docked. A 30-degree down lens was used throughout the case. The colon was mobilized medially by incising the white line of Toldt entering the retroperitoneum. As would be expected with the patient's body habitus, copious perirenal fat was appreciated with a large bulky kidney. Dissection was carried out medially until the duodenum was encountered and then kocherized using cold scissors. Dissection was continued until a duplicated gonadal vein was encountered. The ureter was also noted as well as the psoas muscle. The medial plane was used to allow for lateral traction on the kidney, putting the hilum on stretch and allowing for exposure of the medial structures. Dissection was carried cephalad until the hilum was encountered and single renal artery and vein were noted. Renal artery was noted to be inferior to the renal vein in a slight variation from normal. Both were circumscribed and the dissection was carried out cephalad sufficiently to ensure a lack of additional vessels. Intraoperative ultrasound was then used to define the borders of the renal lesion, which was buried deep within the copious fat of Gerota's fascia. This was noted to correspond to its anterior hilar location as appreciated on preoperative imaging. The surrounding fat was marked. An incision was made in the inferior fashion down to the level of the capsule of the kidney. The complex renal cyst was circumscribed exposing the capsule on all sites. The medial aspect was bluntly dissected free from the renal pelvis and vasculature until normal renal parenchyma was reached. After the lateral aspects of the tumor were felt to be well exposed circumferentially, an intraoperative ultrasound confirmed adequate exposure of margins; 12.5 grams of mannitol were provided intravenously to allow for diuresis. The renal artery was double clamped using short straight bulldogs and a long straight clamp was placed over the renal vein. Iced saline was used to cool the temperature of the kidney before clamping the vein and after clamping the arteries. Pronounced blanching of the kidney was appreciated both on clamping and on irrigation. Cold scissors were used to excise the renal mass, which was then placed next to the liver for removal at the end of the case. A good number of cut vessels and calices were appreciated within the plane of dissection, which was noted to be free of involvement of any abnormal-appearing tissue. A V-Loc suture with a Weck clip and Lapra-Ty bolster was used to create a deep layer of closure to encompass the vessels in the caliceal system. A layer of FloSeal was then placed over this and interrupted back and forth V-Loc sutures with Weck clip pledgets were used to reapproximate the edges of the capsule. After this was complete, the clamps were removed in a reverse order for a total of 17 minutes of intracorporeal ischemia time with a rapid revascularization of the kidney. Excellent hemostasis was appreciated at the level of the closed renal defect. Additional FloSeal was placed within the defect followed by a cover of Surgicel and a layer of Tisseel. Sutures were tightened and removed prior to placement of hemostatic agents. The Gerota's fascia was closed using a running V-Loc suture and the fourth arm was then removed. An EndoCatch bag was brought in via the inferior most 12 mm port and the complex renal cyst was placed within it and closed. Fourth arm was removed and a #10 ROME drain was brought in via the fourth arm port and placed over the level of the renal hilum for the possibility of urine leak. Robotic instruments were removed and robot was de-docked. Some of the flexion was then removed from the table at this level. The inferiormost 12 mm port was enlarged sufficiently to allow for removal of the specimen bag without difficulties. This required somewhat of a larger incision due to the patient's body habitus. This incision was then closed using a 0 Vicryl on a UR-5 needle. Subcutaneous tissues were also closed using interrupted 3-0 Vicryl suture. 2-0 silk was used to secure the #[address] and remainder of the flexion was removed from the table. Skin incisions were closed using 4-0 Monocryl and Dermabond dressings. Excess carbon dioxide gas had been removed from the abdomen prior to completion of closures. Anesthesia was reversed and the patient was transferred to the recovery room in stable condition. FOLLOWUP CARE: The patient will be admitted to the floor for standard postoperative management. I attest to the content of the Intraoperative Record and any orders documented therein. Any exception s are noted below.
--- NOTE | 2019-06-17 10:39 | Discharge Summary ---
Date of Service June 17, 2019 Admission HPI Per Admitting Provider see H&P Admission Exam Per Admitting Provider see H&P Principal Diagnosis right renal mass Discharge Exam Constitutional + morbidly obese; no acute distress Eyes eyes not dysmorphic ENMT Ears: no external ear abnormality Neck trachea midline; no anterior neck swelling Respiratory no respiratory distress and does not use accessory muscles Cardiovascular Vessels: radial pulses present Gastrointestinal (Abdomen) Inspection/Auscultation: abdomen not distended Percussion/Palpation: abdomen soft; abdomen nontender Musculoskeletal Head/Neck/Chest: normocephalic and neck supple Skin normal turgor Neurologic awake; not obtunded Psychiatric Orientation: oriented x 3 Lymphatic no lymphadenopathy Discharge Data Allergies Allergy/AdvReac Type Severity Reaction Status Date / Time No Known Allergies Allergy Verified 06/04/19 05:38 Procedures Performed Operation Date: 06/04/19 07:30 Actual Procedures p Right Robotic Laparoscopic Assisted Partial Nephrectomy(Right) - Amari Huston MD Hospital Course (1) Right renal mass: Pt admitted for planned right robotic partial nephrectomy for Bosniak 3 renal cyst, discharged home on POD #2. ROME drain d/c prior to discharge No complications. All questions answered, post op appointments arranged. . Total Time Total Time Spent Total Time Spent (In Minutes): 15 Total Time Includes: Examination of the Patient, Discharge Planning, Medication Reconciliation and Communication With Other Providers Discharge Plan Discharge Items Patient Disposition: Home - Self-Care Reason For Visit: Right Renal Mass Discharge Diagnosis: right renal mass Condition on Discharge: Good Activity: Per Instructions section Lifting: No more than 25 pounds Bathing: Keep incision dry Bathing Comment: okay to shower tomorrow. No tub baths/soaking. Sexual Activity: Wait until after follow-up appointment Exercise/Sports: Wait until after follow-up appointment Driving/Machine Use: Do not drive while taking prescription pain medication Non-emergency contact: Urologist Call non-emergency contact if: your pain is concerning for you, your wound has increased redness, your wound has increased drainage and your wound pain has increased Follow-up/Referrals: Amari Huston MD [Physician] - 06/28/19 9:50 am Ivette Beth PA-C [Primary Care Provider] - Diet: Regular Addtl Attending Provider Instructions: Please take all medications as prescribed and keep all follow-ups as scheduled. Please call our office at [phone] with any questions, concerns or need to reschedule appointments for any reason. We are happy to assist you. Recovering at home: We recommend having someone with you for the first few days after surgery to help care for you. It is okay to shower tomorrow. Please avoid swimming, bathing or using hot tub until incisions are well healed. Avoid driving until you are not requiring pain medication any further. Walk at least a few times a day. Increase your distance, as you feel able. Stairs in your home are okay. Please avoid strenuous or sexual activity until your follow-up. We recommend using stool softener (i.e. Colace) to prevent constipation and straining, especially the first two weeks post operatively. Call [facility] at [phone] if you experience: Chest pain or trouble breathing (call 181 or go to the hospital). Fever of 101F or higher Symptoms of infection at incision site, including redness or swelling, warmth, or bad-smelling drainage If you have catheter, and you notice: o Bloody urine or drainage that is dark red or has large clots (Please remember a small amount of blood is normal) o No drainage from the catheter for more than 6 hours o The catheter comes out of your bladder Pain that is not controlled with medicines Pending Studies at Discharge: Yes (pathology) Stand-Alone Forms: [facility], Smoking Cessation Medications and DC Order Prescriptions: New oxycodone-acetaminophen [Percocet] 5-325 mg tablet 1 tab PO TID PRN (Reason: pain) Qty: 14 RF: 0 docusate sodium [Colace] 100 mg capsule 100 mg PO BID Qty: 60 RF: 0 Continued aspirin 81 mg Tablet,Delayed Release (Dr/Ec) 81 mg PO QPM RF: 0 amlodipine 10 mg Tablet 10 mg PO QAM RF: 0 metformin 1,000 mg Tablet 1,000 mg PO BID RF: 0 omeprazole 20 mg Capsule,Delayed Release(Dr/Ec) 20 mg PO QAM RF: 0 olmesartan-hydrochlorothiazide 40-25 mg Tablet 1 tab PO QAM RF: 0 Januvia 100 mg Tablet 100 mg PO QPM RF: 0 glimepiride 1 mg Tablet 1 mg PO QAM RF: 0 doxazosin 4 mg Tablet 4 mg PO QPM RF: 0 oxycodone-acetaminophen [Percocet] 5-325 mg tablet 1 tab PO Q6H PRN (Reason: pain) Qty: 15 RF: 0 tamsulosin 0.4 mg capsule 0.4 mg PO DAILY Qty: 10 RF: 1 acetaminophen [Tylenol] 325 mg Capsule 325 mg PO DIRECTED RF: 0 Discharge Orders: Discharge Order (Routine); Ordered 06/06/19 Ordered By: Marjan Singh Admission Data Admit Date/Time: 06/04/19 12:43 Attending Provider: Amari Huston I. Admit Provider: Amari Huston I. Primary Care Provider: Ivette Beth Other Interventions: Discharge Summary Assessment (RN) Last Done: 06/06/19 13:26 DC Date/Time DO NOT enter until pt leaves facility: 06/06/19 13:59
== END 2019-06-06 13:59 | disposition home or self-care (01) | DRG 660 ==
LOC: ASU 05:15 → 3W 12:43